=== PATIENT | male | born 1970 | race Caucasian/White ===

== ENCOUNTER 2020-09-02 09:01 | Emergency (ER) | payer OTHER ==
[~2020-09-02] VITALS: Ht 172.7 cm; Wt 93.4 kg
[2020-09-02] MEDS ORDERED: ACID REDUCER20 M1 PO (09:13)
[2020-09-02] MEDS ORDERED: NEURONTIN600 M1 PO (09:13)
== END 2020-09-02 16:45 | disposition home or self-care (01) ==
LOC: ER 09:01
DX: N20.1 Calculus of ureter (principal); R10.32 Left lower quadrant pain